=== PATIENT | female | born 2000 ===

== ENCOUNTER 2024-11-01 15:38 | Outpatient (CLI) | payer OTHER | END 2024-11-01 15:40 | disposition home or self-care (01) | LOC: PRENATAL 15:38 | PROVIDERS: ATTEND Obstetrics & Gynecology Maternal & Fetal Medicine | DX: O44.00 Complete placenta previa NOS or without hemorrhage, unspecified trimester (principal); Z3A.20 20 weeks gestation of pregnancy ==

== ENCOUNTER 2025-01-31 15:26 | Outpatient (CLI) | payer OTHER | END 2025-01-31 15:27 | disposition home or self-care (01) | LOC: PRENATAL 15:26 | PROVIDERS: ATTEND Obstetrics & Gynecology Maternal & Fetal Medicine | DX: O26.849 Uterine size-date discrepancy, unspecified trimester (principal); O36.8130 Decreased fetal movements, third trimester, not applicable or unspecified; Z3A.32 32 weeks gestation of pregnancy ==

== ENCOUNTER 2025-03-11 08:14 | Inpatient (IN) | payer OTHER ==
[2025-03-11] VITALS (8 sets, daily range): BP systolic 101–127; BP diastolic 67–83
[~2025-03-11] VITALS: Ht 160 cm; Wt 62.1 kg
[2025-03-11] MEDS ORDERED: RINGERS SOLUTION,LACTATED 1,000 ML IV SCH (08:30)
[2025-03-11] MEDS ORDERED: MORPHINE SULFATE 4 MG/ML CARTRIDGE IV ONE (08:30)
[2025-03-11] MEDS ORDERED: OXYTOCIN 500 ML IV SCH (08:30)
[2025-03-11 08:59] LABS: BASO % 0.2 % (0.1-1.2); EOS # 0.06 (0.04-0.54); EOS % 0.5 % (0.7-7.0); LYMPH # 1.32 (1.18-3.74); LYMPH % 10.8 % (19.3-53.1); MEAN PLATELET VOLUME 11.20 fl (9.4-12.4); MONO # 0.64 (0.24-0.82); MONO % 5.3 % (4.7-12.5); NEUT # 10.09 (1.56-6.13); NEUT % 82.8 % (34.0-71.1); RED CELL DISTRIBUTION WIDTH 13.1 % (11.6-14.4)
[2025-03-11 09:17] LABS: URINE APPEARANCE Clear; URINE BILIRRUBIN Negative (NEGATIVE); URINE BLOOD Negative; URINE COLOR Yellow; URINE GLUCOSE Negative (NEGATIVE); URINE KETONE Negative (NEGATIVE); URINE LEUKOCYTE Small; URINE NITRATE Negative; URINE PROTEIN Negative (NEGATIVE); URINE UROBILINOGEN 0.2 E.U./dl
[2025-03-11 09:21] LABS: URINE BACTERIA 1312.6 uL (0.0-1933); URINE EPITHELIAL CELLS 45.6 uL (0.0-38.8); URINE WBC 29.8 uL (0.0-23.2)
[2025-03-11] MEDS ORDERED: OXYTOCIN 20 UNITS/1000ML RL PIGGYBAG IV ONE (09:22)
[2025-03-11] MEDS ORDERED: ERYTHROMYCIN BASE OPHT 1GM EACH TUBE OP ONE (09:22)
[2025-03-11 09:23] LABS: INR < 0.93
[2025-03-11] MEDS ORDERED: CHLORHEXIDINE GLUCONATE 120 ML BOTTLE TOP ONE (09:23)
[2025-03-11] MEDS ORDERED: LIDOCAINE HCL 1% 10ML VIAL ONE (09:23)
[2025-03-11 09:55] LABS: URINE CAST 0.14 uL (0.0-1.40); URINE RBC 1.4 uL (0.0-20.8)
[2025-03-11 17:07] LABS: BASO % 0.2 % (0.1-1.2); EOS # 0.01 (0.04-0.54); EOS % 0.0 % (0.7-7.0); LYMPH # 1.26 (1.18-3.74); LYMPH % 5.2 % (19.3-53.1); MEAN PLATELET VOLUME 11.80 fl (9.4-12.4); MONO # 1.20 (0.24-0.82); MONO % 5.0 % (4.7-12.5); NEUT # 21.55 (1.56-6.13); NEUT % 89.0 % (34.0-71.1); RED CELL DISTRIBUTION WIDTH 13.0 % (11.6-14.4)
[2025-03-12 00:27] VITALS: BP 115/70
[2025-03-12] MEDS ORDERED: PNV,CALCIUM 72/IRON/FOLIC ACID 1 TAB TABLET PO SCH (09:00)
[2025-03-12 09:12] VITALS: BP 116/76
[2025-03-12 17:00] VITALS: BP 113/73
[2025-03-13] VITALS: BP 122/80
[2025-03-13 09:09] VITALS: BP 119/80
== END 2025-03-13 16:54 | disposition home or self-care (01) | DRG 807 ==
LOC: LDR 08:14 → OB/GYN 08:14
PROVIDERS: ADMIT Obstetrics & Gynecology; ATTEND Obstetrics & Gynecology
PROC: 10E0XZZ Delivery of Products of Conception, External Approach (ICD-10-PCS; principal; 2025-03-11)
PROC: 0UQG7ZZ Repair Vagina, Via Natural or Artificial Opening (ICD-10-PCS; 2025-03-11)
PROC: 4A1HXCZ Monitoring of Products of Conception, Cardiac Rate, External Approach (ICD-10-PCS; 2025-03-11)
DX: O70.1 Second degree perineal laceration during delivery (principal); Z37.0 Single live birth; Z3A.37 37 weeks gestation of pregnancy